=== PATIENT | female | born 1935 | race Caucasian/White ===

== ENCOUNTER → 2020-01-04 | Day surgery (SDC) | payer MEDICARE, BC ==
[~2020-01-04] MED LIST: ACETAMINOPHEN325 M1 PO; ASCORBIC ACID500 MG PO; ASPIRIN81 MG PO; BIOTIN5 MG PO; BUSPIRONE HCL5 MG PO; CARVEDILOL3.125 MG PO; CLINDAMYCIN 600MG / 50ML 50 ML IV ONE; CLOBETASOL1 EA/15 GM TOP; DERMOTIC20 ML TOP; DEXAMETHASONE SOD PHOS INJ 4 MG/ML VIAL ONE; ECONAZOLE NITRA15 GM TOP; ESCITALOPRAM OX10 MG PO; FENTANYL CITRATE/PF 100MCG/2 ML INJ ONE; GABAPENTIN100 MG PO; GLYCOPYRROLATE INJ 0.2 MG/ML VIAL ONE; HYDROXYZINE HCL25 MG PO; LACTULOSE20 GM/30 M PO; LEVOTHYROXINE88 MCG PO; LIDOCAINE HCL 2% LOCAL INJ 5 ML SDV VIAL INJ ONE; LINZESS145 MCG PO; LOPERAMIDE2 MG PO; LORAZEPAM2 MG/1 M1 PO; METOCLOPRAMIDE HCL 10 MG/2ML VIAL ONE; MYRBETRIQ25 MG PO; NEOSTIGMINE 1 MG/ML 10ML VIAL ONE; NORCO 10-325 T1 EACH PO; ONDANSETRON HCL INJ 2MG/ML 2ML 2 MG/ML VIAL ONE; PANTOPRAZOLE SO40 MG PO; POLYETHYLENE GL17 GM PO; PRAVACHOL20 MG PO; PROPOFOL IV EMULSION 10 MG/ML 20 ML VIAL ONE; QUESTRAN PACKET4 GM PO; REFRESH PLUS1 EACH OU; REMERON45 M1 PO; ROCURONIUM BROMIDE 10 MG/ML 5ML VIAL IV ONE; SEVOFLURANE INHAL SOLN 250 ML PEN BTL ONE; ULTRAM50 MG PO; ZINC SULFATE220 MG PO; [UNRECOGNIZED DRUG - OTHER] PO
[2020-01-04 07:14] LABS: BASOPHILS % 0.5 % (0.0-1.0); EOSINOPHILS # (AUTO) 0.5 (0.0-0.4); HEMATOCRIT 36.9 % (34.2-44.1); HEMOGLOBIN 10.7 g/dL (12.0-16.0); LYMPHOCYTES # (AUTO) 0.9 (1.0-3.2); LYMPHOCYTES % 10.9 % (18.0-39.1); MEAN CORPUSCULAR HEMOGLOBIN 26.9 pg (28-32); MEAN CORPUSCULAR VOLUME 92.7 fL (81-99); MONOCYTES % 11.6 % (4.4-11.3); NEUTROPHILS # (AUTO) 5.7 (2.1-6.9); NEUTROPHILS % 69.7 % (38.7-80.0); PLATELET COUNT 298 x10e3/uL (140-360); RED BLOOD COUNT 3.98 x10e6/uL (3.6-5.1); RED CELL DISTRIBUTION WIDTH 14.9 % (11.7-14.4)
[2020-01-04 07:36] LABS: ANION GAP 12.3 mmol/L (8-16); BLOOD UREA NITROGEN 8 mg/dL (7-26); BUN/CREATININE RATIO 13 (6-25); CALCIUM 9.9 mg/dL (8.4-10.2); CARBON DIOXIDE 29 mmol/L (22-29); CHLORIDE 104 mmol/L (98-107); EST GLOMERULAR FILTRATION RATE > 60 ML/MIN (60-); GLUCOSE 83 mg/dL (74-118); POTASSIUM 4.3 mmol/L (3.5-5.1); SODIUM 141 mmol/L (136-145)
--- NOTE | 2020-01-04 07:51 | Diagnostic Imaging Report ---
EXAMINATION: CHEST 2 VIEWS INDICATION: Preop COMPARISON: None FINDINGS: TUBES and LINES: None. LUNGS/PLEURA: Normal lung volumes. Left basilar haziness. No pneumothorax. HEART AND MEDIASTINUM: The cardiomediastinal silhouette is borderline enlarged. Large hiatal hernia. Aortic calcifications. BONES AND SOFT TISSUES: Right shoulder arthroplasty hardware appears intact. Left shoulder arthroplasty hardware appears superiorly migrated. Soft tissues are unremarkable. UPPER ABDOMEN: No free air under the diaphragm. IMPRESSION: Large hiatal hernia. Suspect left basilar atelectasis or pneumonia. Left shoulder arthroplasty hardware appears superiorly migrated, recommended dedicated left shoulder radiographs. Signed by: Froy Lockhart DO on 01/04/2020 7:48 AM
[2020-01-04 10:50] VITALS: BP 140/63
--- NOTE | 2020-01-04 15:34 | Operative Report ---
DATE OF PROCEDURE: 01/04/2020 SURGEON: LUCY WORLEY MD HISTORY: Ms. Wright is a patient, whom I initially seeing for orthopedic followup following a fall, for which she had sustained a significant bicolumn supracondylar elbow fracture of the left elbow with marked displacement and impaction. Upon initial evaluation, the patient was given treatment options and alternatives. The patient has significant history of rheumatoid arthritis with longstanding arthritic changes of multiple joints. She underwent a previous left total shoulder arthroplasty several years ago, but the patient and her [id number]-[id number] did not remember, who the treating physician was. She also has significant arthritic changes of multiple joints throughout secondary to her rheumatoid. Initially, the patient was consented for an open reduction and internal fixation of the supracondylar elbow fracture of the left elbow. The patient was seen and identified in the preoperative holding area with her daughter present. The initial preoperative COVID test was found to be negative. After the COVID test found to be negative, the patient was then brought back to the operative suite. The patient was then given a successful general intubation anesthetic and the patient in the prone position. Prior to any incision was made, I decided to bring in C-arm fluoroscopy to examine the fracture, seen that on my initial prepping of the elbow, there was marked instability of the elbow itself and my suspicion was that the patient may have further displaced the fracture and/or dislocated the elbow joint. Upon C-arm fluoroscopy evaluation, the patient did indeed have a dislocation of the elbow joint of the humeral ulnar joint. Using careful manipulation and live C-arm fluoroscopy, it was very cognizant of the patient's total shoulder arthroplasty approximately, but I was able to reduce the elbow dislocation and the ulnohumeral joint was reduced. Upon which time, the fracture was noted to be markedly comminuted while involving both the medial and lateral columns with impaction and marked comminution. In addition to this, the patient has significant ostial prosody and the cortex was markedly thin and brittle. My primary concern at this point in time was the patient's bone stock given her rheumatoid arthritis and I was concerned if the plate fixation will even hold. I decided to break scrub and discuss the intraoperative findings thus far with the [id number]. I broke the scrub and I went out, and spoke with the [id number] personally and I conveyed to her the intraoperative findings and my concerns with her. I was honest with her and I felt that given the patient's marked osteopenia and osteoporosis, my concern is if the fracture fixation will hold and if it does not, the patient may require further additional surgery in the form of a total elbow arthroplasty. After this discussion, the daughter has elected that we do not proceed along with surgical intervention with plate and screw fixation. She states that she would much prefer to just try to treat the fracture closed with casting and that if there are any signs of loss of function or nonunion, she would much prefer to proceed on with a total elbow arthroplasty at that time. Thus, per the patient's ooojmosf-ie-ozt wishes, she did not want me to proceed along with the initial planned procedure of open reduction and internal fixation, instead she wanted to proceed on with a closed reduction with casting for the fracture. This was confirmed with the preoperative charge nurse, Nichole, who listened to the patient's [id number] wishes. I scrub back to the OR and I told the staff that we are doing a closed reduction of the elbow. Upon which time, the C-arm fluoroscopy was brought in. Again, the reduction of the elbow dislocation that was initially present was reduced and maintained. I went ahead and carefully did multiple layers of Webril using 3 to 4 rolls of Webril, so that the entire arm was well padded. Upon which time, I will proceed on placing a long arm cast of the left upper extremity. Under live C-arm fluoroscopy, I was able to maintain the reduction as best as possible given the marked comminution and instability of the fracture, and reduction was confirmed both AP, lateral, and oblique views. Again, the only humeral joint dislocation was reduced and maintained in the cast and the reduction was completed as best as possible given the initial fracture configuration. After a long arm casting, again the fracture was examined under live C-arm fluoroscopy and the fracture was stable in the cast. The patient was successfully extubated and transferred to PACU in stable condition. PREOPERATIVE DIAGNOSIS: Supracondylar fracture of the left elbow involving both the medial and lateral columns with intra-articular extension. POSTOPERATIVE DIAGNOSES: 1. Left elbow ulnar humeral dislocation. 2. Comminuted impacted displaced supracondylar elbow fracture with intra-articular extension of the left elbow. PROCEDURES: 1. Closed reduction of the left ulnohumeral elbow dislocation. 2. Closed reduction with manipulation of the supracondylar elbow fracture with intra-articular extension. 3. Placement of a long arm cast of the left upper extremity. ANESTHESIA: General. ESTIMATED BLOOD LOSS: None. COMPLICATIONS: None. CONDITION: Stable. INTRAOPERATIVE FINDINGS: Please refer to the above dictation. Following the closed reduction and casting, I reviewed the intraoperative findings with the daughter, and arthroscopy photos were given. Again, the patient was fine with the closed reduction. The patient will follow up in a period of 6 to 8 weeks. We will go ahead and repeat x-rays of her elbow in cast and do a cast exchange if needed. She is to continue her elevation for edema control. The treatment plan was also discussed with nursing staff. MD ADONIS CAREY/ELLEN /[id number]
== END | disposition home or self-care (01) ==
LOC: OR 06:19
PROVIDERS: ATTEND Orthopaedic Surgery
DX: S42.422A Displaced comminuted supracondylar fracture without intercondylar fracture of left humerus, initial encounter for closed fracture (principal); S53.105A Unspecified dislocation of left ulnohumeral joint, initial encounter; M06.9 Rheumatoid arthritis, unspecified; M85.80 Other specified disorders of bone density and structure, unspecified site; M81.0 Age-related osteoporosis without current pathological fracture; E03.9 Hypothyroidism, unspecified; D64.9 Anemia, unspecified; I10 Essential (primary) hypertension; F32.9 Major depressive disorder, single episode, unspecified; Z88.6 Allergy status to analgesic agent; Z88.1 Allergy status to other antibiotic agents; W01.0XXA Fall on same level from slipping, tripping and stumbling without subsequent striking against object, initial encounter; Y92.128 Other place in nursing home as the place of occurrence of the external cause; Z11.59 Encounter for screening for other viral diseases; Z79.82 Long term (current) use of aspirin; Z96.612 Presence of left artificial shoulder joint
CPT/HCPCS: 24535; 24605; 36415; 71046; 76000; 80048; 85025; 93005; J1100; J2001; J2405; J2704; J2710; J2765; J3010; U0002